=== PATIENT | male | born 1980 | race Two or more races ===

== ENCOUNTER 2024-10-22 17:23 | Inpatient (IN) | payer BC, OTHER ==
[~2024-10-22] VITALS: Ht 170.2 cm; Wt 100.0 kg
[2024-10-22] MEDS: SODIUM CHLORIDE 0.9% 1,000 ML IV SCH (07:45)
--- NOTE | 2024-10-22 17:44 | ED.PDOC ---
History of Present Illness HPI Comments This is a 44-year-old male with past medical history of hypertension, type 2 diabetes mellitus, hyperlipidemia presented to the ED for abnormal lab. Patient stated that he 2 days ago he had a metabolic panel done and today he received message from his PCP regarding worsening of kidney function and urinalysis showed significant hematuria that prompted this visit. The patient also mentioned that recently he was taking ibuprofen more often than before. He denies flank pain, nausea, vomiting, dysuria, hematuria or any changes in bowel habit. Chief Complaint: Abnormal LAB's Time Seen by MD: 17:32 Allergies: Coded Allergies: NO KNOWN ALLERGIES (Unverified , 10/22/24) Information Source: Patient Mode of Arrival: Ambulatory Severity: Mild Timing: Days Duration: Since onset Past Medical History PAST MEDICAL HISTORY: DM, HTN Surgical History: Denies all surgeries Family History Family History: Reviewed,noncontributory to illness Social History Smoker: Non-Smoker Alcohol: Occasionally Drugs: Denies Drug Use Lives In: Home Constitutional: denies: chills, diaphoresis, fatigue, fever, malaise, sweats, weakness, others EENTM: denies: blurred vision, double vision, ear bleeding, ear discharge, ear drainage, ear pain, ear ringing, eye pain, eye redness, hearing loss, mouth pain, mouth swelling, nasal discharge, nose bleeding, nose congestion, nose pain, photophobia, tearing, throat pain, throat swelling, voice changes, others Respiratory: denies: cough, hemoptysis, orthopnea, SOB at rest, shortness of breath, SOB with excertion, stridor, wheezing, others Cardiovascular: denies: chest pain, dizzy spells, diaphoresis, Dyspnea on exertion, edema, irregular heart beat, left arm pain, lightheadedness, palpitations, PND, syncope, others Gastrointestinal: denies: abdomen distended, abdominal pain, blood streaked bowels, constipated, diarrhea, dysphagia, difficulty swallowing, hematemesis, melena, nausea, poor appetite, poor fluid intake, rectal bleeding, rectal pain, vomiting, others Genitourinary: denies: burning, dysuria, flank pain, frequency, hematuria, incontinence, penile discharge, penile sore, pain, testicle pain, testicle swelling, urgency, others Neurological: denies: dizziness, fainting, headache, left sided numbness, left sided weakness, numbness, paresthesia, pre-existing deficit, right sided numbness, right sided weakness, seizure, speech problems, tingling, tremors, weakness, others Musculoskeletal: denies: back pain, gout, joint pain, joint swelling, muscle pain, muscle stiffness, neck pain, others Integumetry: denies: bruises, change in color, change in hair/nails, dryness, laceration, lesions, lumps, rash, wounds, others Allergic/Immunocompromised: denies: Difficulty Healing, Frequent Infections, Hives, Itching, others Hematologic/Lymphatic: denies: anemia, blood clots, easy bleeding, easy bruising, swollen glands, others Endocrine: denies: excessive hunger, excessive sweating, excessive thirst, excessive urination, flushing, intolerance to cold, intolerance to heat, unexplained weight gain, unexplained weight loss, others Psychiatric: denies: anxiety, bipolar disorder, depression, hopeless, panic disorder, schizophrenia, sleepless, suicidal, others Physical Exam General Appearance: Normal HEENT: Normal ENT Inspection, Pharynx Normal, TMs Normal Neck: Full Range of Motion, Non-Tender, Normal, Normal Inspection Respiratory: Chest Non-Tender, Lungs Clear, No Accessory Muscle Use, No Respiratory Distress, Normal Breath Sounds Cardiovascular: No Edema, No JVD, No Murmur, No Gallop, Normal Peripheral Pulses, Regular Rate/Rhythm Breast Exam: Deferred Gastrointestinal: No Organomegaly, Non Tender, No Pulsatile Mass, Normal Bowel Sounds, Soft Genitalia: Deferred Pelvic: Deferred Rectal: Deferred Extremities: No calf tenderness, Normal capillary refill, Normal inspection, Normal range of motion, Non-tender, No pedal edema Neurologic: Alert, 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 Was a procedure done?: No Differential Dx Considerations may include: NICOLE, analgesic nephropathy, UTI, hypertension, type 2 diabetes mellitus X-Ray, Labs, Meds, VS Vital Signs Date Time Temp Pulse Resp B/P (MAP) Pulse Ox O2 Delivery O2 Flow Rate FiO2 10/22/24 17:24 98.1 82 16 149/105 98 98.1 Lab Test 10/22/24 18:12 Range/Units White Blood Count 8.0 4.4-10.8 10^3/uL Red Blood Count 4.76 4.5-5.90 10^6/uL Hemoglobin 13.7 13.5-17.5 g/dL Hematocrit 39.5 L 41.0-53.0 % Mean Corpuscular Volume 83.0 80.0-100.0 fL Mean Corpuscular Hemoglobin 28.7 28.0-32.0 pg Mean Corpuscular Hemoglobin Concent 34.6 32.0-36.0 g/dL Red Cell Distribution Width 13.4 11.8-14.3 % Platelet Count 322 140-450 10^3/uL Mean Platelet Volume 7.5 6.9-10.8 fL Neutrophils (%) (Auto) 59.2 37.0-80.0 % Lymphocytes (%) (Auto) 26.9 10.0-50.0 % Monocytes (%) (Auto) 8.9 0.0-12.0 % Eosinophils (%) (Auto) 4.2 0.0-7.0 % Basophils (%) (Auto) 0.8 0.0-2.0 % Neutrophils # (Auto) 4.7 1.6-8.6 10 ^3/uL Lymphocytes # (Auto) 2.2 0.4-5.4 10 ^3/uL Monocytes # (Auto) 0.7 0-1.3 10 ^3/uL Eosinophils # (Auto) 0.3 0-0.8 10 ^3/uL Basophils # (Auto) 0.1 0-0.2 10 ^3/uL Nucleated Red Blood Cells 0.1 % Sodium Level 136 136-145 mmol/L Potassium Level 4.1 3.5-5.1 mmol/L Chloride Level 101 98-107 mmol/L Carbon Dioxide Level 23 20-31 mmol/L Anion Gap 12 5-15 Blood Urea Nitrogen 27 H 9-23 mg/dL Creatinine 1.90 H 0.700-1.30 mg/dL Glomerular Filtration Rate Calc 44 >90 mL/min BUN/Creatinine Ratio 14.2 10.0-20.0 Serum Glucose 102 74-106 mg/dL Calcium Level 9.4 8.7-10.4 mg/dL Total Bilirubin 1.7 H 0.2-1.0 mg/dL Aspartate Amino Transferase (AST) 30 13-40 U/L Alanine Aminotransferase (ALT) 36 7-40 U/L Alkaline Phosphatase 152 H 46-116 U/L Total Protein 8.8 H 5.7-8.2 g/dL Albumin 5.2 H 3.2-4.8 g/dL X-Ray, Labs, Meds, VS Comment CBC was unremarkable CMP demonstrated elevated BUN, creatinine, bilirubin and ALP Images Reviewed?: Images reviewed and evaluated by me Time of 1ST Reevaluation: 19:11 Reevaluation 1ST: Unchanged Patient Education/Counseling: Diagnosis, Treatment Family Education/Counseling: No Family Present Comments This is a 44-year-old male came to the ER for re-evaluation of abnormal lab results CBC is unremarkable BNP demonstrated elevated BUN, creatinine, bilirubin and ALP The patient needs inpatient admission for IV fluid to treat possible prerenal NICOLE SEPSIS Sepsis Screen Date sepsis recognized/suspect: Oct 22, 2024 Time Sepsis recognized/suspect: 1726 Recent Procedure: No On Antibiotic Therapy: No Respiratory Rate >20: No Heart Rate >90: No Temp<36 C (96.8 F) or >38.3 C: No SBP <90 or MAP <65 mmHG: No New Acute Mental Status Change: No Is the patient on CPAP, BIPAP,: No Physician Orders Urinalysis (10/22/24 17:41) Vital Signs Date Time Temp Pulse Resp B/P (MAP) Pulse Ox O2 Delivery O2 Flow Rate FiO2 10/22/24 17:24 98.1 82 16 149/105 98 98.1 Laboratory Tests Test 10/22/24 18:12 White Blood Count 8.0 10^3/uL (4.4-10.8) Departure 1 Departure Time of Disposition: 19:13 Impression: Primary Impression: NICOLE (acute kidney injury) Additional Impression: Hyperbilirubinemia Disposition: ADMITTED INPATIENT Admit to: Med Surg Condition: Guarded Critical Care Note Critical Care Time?: No Stability Stability form required: No ANA LAURA MOORE RESIDENT Oct 22, 2024 17:44
[2024-10-22 18:22] LABS: Hematocrit 39.5 % (41.0-53.0); Hemoglobin 13.7 g/dL (13.5-17.5); Mean Corpuscular Hemoglobin 28.7 pg (28.0-32.0); Mean Corpuscular Volume 83.0 fL (80.0-100.0); Nucleated Red Blood Cells % 0.1 %
[2024-10-22 18:53] LABS: Alanine Aminotransferase 36 U/L (7-40); Albumin 5.2 g/dL (3.2-4.8); Alkaline Phosphatase 152 U/L (46-116); Anion Gap 12 (5-15); BUN/Creatinine Ratio 14.2 (10.0-20.0); Blood Urea Nitrogen 27 mg/dL (9-23); Calcium 9.4 mg/dL (8.7-10.4); Carbon Dioxide 23 mmol/L (20-31); Chloride 101 mmol/L (98-107); Glucose 102 mg/dL (74-106); Potassium 4.1 mmol/L (3.5-5.1); Sodium 136 mmol/L (136-145); Total Protein 8.8 g/dL (5.7-8.2)
[2024-10-22 18:54] LABS: Bilirubin, Total 1.7 mg/dL (0.2-1.0)
[2024-10-22 19:57] LABS: Urine Protein, UAD Negative (Negative)
[2024-10-22] MEDS: SODIUM CHLORIDE 0.9% 1,000 ML IV ONE (20:38)
[2024-10-22] MEDS ORDERED: DOCUSATE SOD 100 MG CAP PO PRN (23:00)
[2024-10-22] MEDS ORDERED: hydrALAZINE HCL 20 MG/ML VL IV PRN (23:00)
[2024-10-22] MEDS ORDERED: ONDANSETRON HCL 4 MG/2 ML VIAL IV PRN (23:00)
[2024-10-22] MEDS ORDERED: DEXTROSE (50%) 50ML SYRG IV PRN (23:00)
[2024-10-22] MEDS ORDERED: HYDROcodone-ACET 5/325MG TAB PO PRN (23:00)
[2024-10-22] MEDS ORDERED: ACETAMINOPHEN 325 MG TAB PO PRN (23:00)
--- NOTE | 2024-10-22 23:33 | DVHHP2 ---
History of Present Illness Reason for Visit: Acute renal injury History of Present Illness The patient is a 44-year-old male with past medical history diabetes mellitus, hypertension, and hyperlipidemia who presented to [facility] ED for evaluation of abnormal labs. Patient reports he had routine metabolic panel lab draw 2 days ago and receive a call from his PCP regarding worsening kidney function and urinalysis showed significant hematuria. Patient was seen and evaluated in the ED, laboratory data shows WBC 8.0, platelets 322, sodium 136, potassium 4.1, BUN 27, creatinine 1.90, glucose 102, calcium 9.4, protein 8.8, albumin 5.2, total bilirubin 1.7, alkaline phos 152, blood pressure 160/91, heart rate 78, temperature 98.4 F, O2 saturation 99% on on oxygen. Please see medication orders section in the computer. On my assessment, patient denied chest pain, headache, no dizziness, no shortness of breath, no abdominal pain, no nausea, no vomiting, no fever, no chills. Patient was admitted for further evaluation medical management. Past Medical History DM, HTN, HLD Past Surgical History Denies all surgeries Family History Reviewed, noncontributory to the management of this case. Past Social History The patient lives at home, denies smoking, alcohol or illicit drugs abuse. Review of Systems Constitutional: No: Fever, Chills, Sweats, Weakness, Malaise, Other Eyes: No: Pain, Vision change, Conjunctivae inflammation, Eyelid inflammation, Other, Redness ENT: No: Ear pain, Ear discharge, Nose pain, Nose discharge, Nose congestion, Mouth pain, Mouth swelling, Throat pain, Throat swelling, Other Respiratory: No: Cough, Dry, Shortness of breath, SOB with excertion, Wheezing, Hemoptysis, Pleuritic Pain, Sputum, Wheezing, Other Cardiovascular: No: Chest Pain, Palpitations, Orthopnea, Paroxysmal Noc. Dyspnea, Edema, Lt Headedness, Other Gastrointestinal: No: Nausea, Vomiting, Abdominal Pain, Diarrhea, Constipation, Melena, Hematochezia, Other Genitourinary: No Dysuria, No Frequency, No Incontinence; Hematuria; No Retention, No Other Musculoskeletal: No: other, neck pain, shoulder pain, arm pain, back pain, hand pain, leg pain, foot pain Skin: No: Rash, Lesions, Jaundice, Bruising, Other Neurological: No: Weakness, Numbness, Incoordination, Change in speech, Confusion, Seizures, Other Allergies: Coded Allergies: NO KNOWN ALLERGIES (Unverified , 10/22/24) Medications Current Medications Medications Dose Ordered Sig/Peggy Route Start Time Stop Time Status Last Admin Dose Admin Atorvastatin Calcium 10 mg HS PO 10/23/24 22:00 Amlodipine Besylate 5 mg DAILY PO 10/23/24 10:00 Hydralazine HCl 10 mg Q6HP PRN IV 10/22/24 23:00 Diagnostic Test (Pha) 1 strip ACHS 10/23/24 07:00 Insulin Human Regular ACHS SC 10/23/24 07:00 Dextrose 50 ml UD PRN IV 10/22/24 23:00 Sodium Chloride 1,000 ml @ 60 mls/hr [id number] IV 10/22/24 23:00 Acetaminophen/ Hydrocodone Bitart 1 tab Q4HP PRN PO 10/22/24 23:00 Ondansetron HCl 4 mg Q4HP PRN IV 10/22/24 23:00 Docusate Sodium 100 mg BIDPRN PRN PO 10/22/24 23:00 Acetaminophen 650 mg Q6HP PRN PO 10/22/24 23:00 Exam Vital Signs Vital Signs Date Time Temp Pulse Resp B/P (MAP) Pulse Ox O2 Delivery O2 Flow Rate FiO2 10/22/24 22:39 98.4 78 16 160/91 (114) 99 98.4 10/22/24 20:16 Room Air General Appearance: Alert, Oriented X3, Cooperative, No acute distress HEENT: Atraumatic, PERRLA, EOMI, Mucous membr. moist/pink Respiratory: Clear to auscultation, Normal air movement Cardiovascular: Regular rate, Normal S1, Normal S2, No murmurs Abdominal: Normal bowel sounds, Soft, No tenderness, No hepatospenomegaly, No masses Extremities: No clubbing, No cyanosis, No edema, Normal pulses, No tenderness/swelling Skin: No rashes, No breakdown, No significant lesion Neuro: Normal gait, Normal speech, Strength at 5/5 X4 ext, Normal tone, Sensation intact, Cranial nerves 3-12 NL, Reflexes 2+ Psych/Mental Status: Mental status NL, Mood NL Labs/Xrays Labs Test 10/22/24 18:39 10/22/24 18:12 Range/Units Urine Color Colorless Yellow Urine Clarity Clear Clear Urine pH 5.5 5.0-9.0 Urine Specific [place] 1.006 1.001-1.035 Urine Protein Negative Negative Urine Ketones Negative Negative Urine Blood Negative Negative /uL Urine Nitrite Negative Negative Urine Bilirubin Negative Negative Urine Urobilinogen Normal Negative mg/dL Urine Leukocyte Esterase Negative Negative /uL Urine RBC <1 0 - 3 /hpf Urine Microscopic WBC < 1 0-3 /HPF Urine Squamous Epithelial Cells None seen <5 /hpf Urine Bacteria None seen None Seen /hpf Urine Glucose Normal Normal mg/dL White Blood Count 8.0 4.4-10.8 10^3/uL Red Blood Count 4.76 4.5-5.90 10^6/uL Hemoglobin 13.7 13.5-17.5 g/dL Hematocrit 39.5 L 41.0-53.0 % Mean Corpuscular Volume 83.0 80.0-100.0 fL Mean Corpuscular Hemoglobin 28.7 28.0-32.0 pg Mean Corpuscular Hemoglobin Concent 34.6 32.0-36.0 g/dL Red Cell Distribution Width 13.4 11.8-14.3 % Platelet Count 322 140-450 10^3/uL Mean Platelet Volume 7.5 6.9-10.8 fL Neutrophils (%) (Auto) 59.2 37.0-80.0 % Lymphocytes (%) (Auto) 26.9 10.0-50.0 % Monocytes (%) (Auto) 8.9 0.0-12.0 % Eosinophils (%) (Auto) 4.2 0.0-7.0 % Basophils (%) (Auto) 0.8 0.0-2.0 % Neutrophils # (Auto) 4.7 1.6-8.6 10 ^3/uL Lymphocytes # (Auto) 2.2 0.4-5.4 10 ^3/uL Monocytes # (Auto) 0.7 0-1.3 10 ^3/uL Eosinophils # (Auto) 0.3 0-0.8 10 ^3/uL Basophils # (Auto) 0.1 0-0.2 10 ^3/uL Nucleated Red Blood Cells 0.1 % Sodium Level 136 136-145 mmol/L Potassium Level 4.1 3.5-5.1 mmol/L Chloride Level 101 98-107 mmol/L Carbon Dioxide Level 23 20-31 mmol/L Anion Gap 12 5-15 Blood Urea Nitrogen 27 H 9-23 mg/dL Creatinine 1.90 H 0.700-1.30 mg/dL Glomerular Filtration Rate Calc 44 >90 mL/min BUN/Creatinine Ratio 14.2 10.0-20.0 Serum Glucose 102 74-106 mg/dL Calcium Level 9.4 8.7-10.4 mg/dL Total Bilirubin 1.7 H 0.2-1.0 mg/dL Aspartate Amino Transferase (AST) 30 13-40 U/L Alanine Aminotransferase (ALT) 36 7-40 U/L Alkaline Phosphatase 152 H 46-116 U/L Total Protein 8.8 H 5.7-8.2 g/dL Albumin 5.2 H 3.2-4.8 g/dL SEPSIS Sepsis Screen Date sepsis recognized/suspect: Oct 22, 2024 Time Sepsis recognized/suspect: 1725 Recent Procedure: No On Antibiotic Therapy: No Respiratory Rate >20: No Heart Rate >90: No Temp<36 C (96.8 F) or >38.3 C: No SBP <90 or MAP <65 mmHG: No New Acute Mental Status Change: No Is the patient on CPAP, BIPAP,: No Physician Orders Atorvastatin (Lipitor) (10/23/24 22:00) Amlodipine Tablet (Norvasc Tablet) (10/23/24 10:00) Hydralazine Injection (Apresoline Inject (10/22/24 23:00) *[facility] (10/22/24 22:55) Consistent Carb(Ccho)Diabetes (10/23/24 Breakfast) Glucose Blood (Accu-Chek Comfort Curve T (10/23/24 07:00) Insulin R (Human) (Insulin R) (10/23/24 07:00) Dextrose 50% Syringe (10/22/24 23:00) Allergies (10/22/24 22:55) Code Status (10/22/24 22:55) Sodium Chloride 0.9% (10/22/24 23:00) Oxygen Per Hour (10/22/24 22:55) Hydrocodone-Acet 5/325mg Tab ([place] 5/32 (10/22/24 23:00) Ondansetron Hcl (Zofran) (10/22/24 23:00) Docusate Sodium Capsule (Colace Capsule) (10/22/24 23:00) Complete Blood Count (10/23/24 04:00) Comprehensive Metabolic Panel (10/23/24 04:00) Condition: Serious (10/22/24 22:55) Acetaminophen Tablet (Tylenol Tablet) (10/22/24 23:00) Bedrest With Bathroom Privileg (10/22/24 22:55) Sequential Compression Device (10/22/24 ) Vital Signs Date Time Temp Pulse Resp B/P (MAP) Pulse Ox O2 Delivery O2 Flow Rate FiO2 10/22/24 22:39 98.4 78 16 160/91 (114) 99 98.4 10/22/24 20:16 97.9 72 16 147/90 (109) 99 97.9 10/22/24 20:16 72 17 99 Room Air 10/22/24 17:24 98.1 82 16 149/105 98 98.1 Laboratory Tests Test 10/22/24 18:12 White Blood Count 8.0 10^3/uL (4.4-10.8) Medications Medications Dose Ordered Sig/Peggy Route Start Time Stop Time Status Last Admin Dose Admin Sodium Chloride 1,000 ml @ 1,000 mls/hr Q1H ONCE IV 10/22/24 19:30 10/22/24 20:29 DC 10/22/24 20:38 1,000 MLS/HR Assessment/Plan Assessment/Plan Acute renal injury Hypertension Hyperbilirubinemia Plan 1. Admit to med surge unit 2. Breathing treatment 3. Pain control management 4. Management of fluids and electrolytes 5. Consultation for Nephrology 6. Diagnostic tests chest x-ray 7. DVT prophylaxis on SCDs 8. Repeat labs CBC, CMP in a.m. 9. Continue with current medical management 10. Treatment plan discussed with patient and RN. Patient verbalized understanding. Plan discussed with: Patient, Other (RN) My Orders Orders - ZA TURNER DNP Procedure Category Date Status Time Atorvastatin (Lipitor) PHA 10/23/24 In Process 22:00 Amlodipine Tablet PHA 10/23/24 In Process (Norvasc Tablet) 10:00 Hydralazine Injection PHA 10/22/24 In Process (Apresoline Inject 23:00 *[facility] CONS 10/22/24 Transmitted -[place] 22:55 Consistent DIET 10/23/24 Transmitted Carb(Ccho)Diabetes Breakfast Glucose Blood PHA 10/23/24 In Process (Accu-Chek Comfort 07:00 Insulin R (Human) PHA 10/23/24 In Process (Insulin R) 07:00 Dextrose 50% Syringe PHA 10/22/24 In Process 23:00 Allergies MAZIN 10/22/24 In Process 22:55 Code Status CODE 10/22/24 Transmitted 22:55 Sodium Chloride 0.9% PHA 10/22/24 In Process 23:00 Oxygen Per Hour RT 10/22/24 Transmitted 22:55 Hydrocodone-Acet PHA 10/22/24 In Process 5/325mg Tab ([place] 23:00 Ondansetron Hcl PHA 10/22/24 In Process (Zofran) 23:00 Docusate Sodium PHA 10/22/24 In Process Capsule (Colace 23:00 Complete Blood Count LAB 10/23/24 Verified 04:00 Comprehensive LAB 10/23/24 Verified Metabolic Panel 04:00 Condition: Serious MAZIN 10/22/24 In Process 22:55 Acetaminophen Tablet PHA 10/22/24 In Process (Tylenol Tablet) 23:00 Bedrest With Bathroom MAZIN 10/22/24 In Process Privileg 22:55 Sequential MAZIN 10/22/24 In Process Compression Device Problem List: (1) Acute renal injury (2) Hypertension (3) Hyperbilirubinemia Date of Service: Oct 22, 2024 Billing Provider: ZA TURNER DNP Common Visit Codes: 33737-[id number] INP/OBS CARE (HIGH) ZA TURNER DNP Oct 22, 2024 23:33
[2024-10-22] MEDS ORDERED: NITROGLYCERIN 0.4 MG SL TAB SL PRN (23:45)
[2024-10-22] MEDS ORDERED: MORPHINE SULFATE INJ 2 MG/ml SYRG IV PRN (23:45)
[2024-10-23 02:00] VITALS: BP 149/93; PULSE 69; RESP 16; TEMP 98.1; O2SAT 96
[2024-10-23 04:04] VITALS: BP 129/78; PULSE 71; RESP 13; TEMP 97.6; O2SAT 97
[2024-10-23 04:50] LABS: Hematocrit 39.4 % (41.0-53.0); Hemoglobin 13.6 g/dL (13.5-17.5); Mean Corpuscular Hemoglobin 28.5 pg (28.0-32.0); Mean Corpuscular Volume 82.6 fL (80.0-100.0); Nucleated Red Blood Cells % 0.1 %
[2024-10-23 05:03] LABS: Alanine Aminotransferase 33 U/L (7-40); Anion Gap 10 (5-15); BUN/Creatinine Ratio 16.2 (10.0-20.0); Calcium 9.1 mg/dL (8.7-10.4); Carbon Dioxide 24 mmol/L (20-31); Chloride 104 mmol/L (98-107); Potassium 4.4 mmol/L (3.5-5.1); Sodium 138 mmol/L (136-145)
[2024-10-23 05:10] LABS: Albumin 4.9 g/dL (3.2-4.8); Alkaline Phosphatase 151 U/L (46-116); Bilirubin, Total 1.7 mg/dL (0.2-1.0); Blood Urea Nitrogen 25 mg/dL (9-23); Glucose 132 mg/dL (74-106); Total Protein 8.4 g/dL (5.7-8.2)
[2024-10-23 06:00] VITALS: BP 120/77; PULSE 79; RESP 14; TEMP 97.8; O2SAT 98
[2024-10-23] MEDS: ACCU-CHEK COMFORT CURVE STRIP VI SCH (06:40)
[2024-10-23] MEDS: InsuLIN REG 1unit/0.01ml Soln (100units/ml) SC SCH (06:41)
[2024-10-23 07:57] VITALS: PULSE 74; RESP 11; O2SAT 94
[2024-10-23 11:30] VITALS: BP 140/92; PULSE 79; RESP 18; TEMP 97.8; O2SAT 98
[2024-10-23] MEDS ORDERED: LOSA-535 PO (13:11)
[2024-10-23] MEDS ORDERED: METF-370 PO (13:11)
[2024-10-23] MEDS ORDERED: ATOR10TA52 PO (13:11)
[2024-10-23] MEDS ORDERED: AML5T GT (13:11)
--- NOTE | 2024-10-23 13:47 | DVH ---
INDICATION: kareen TECHNIQUE: Multiple real-time sonographic images of the kidneys and bladder were obtained. COMPARISON: None FINDINGS: The right kidney measures 10 cm in length, which is normal in size. There is normal echogen icity of the right kidney. No hydronephrosis. The left kidney measures 11 cm in length, which is normal in size. There is normal echogenicity of th e left kidney. No hydronephrosis. 7 mm left renal stone No large intraluminal masses are seen in the bladder. Prior to voiding the bladder volume measures vo lume 330 cc. IMPRESSION: 7 mm left renal stone No hydronephrosis.
--- NOTE | 2024-10-23 14:50 | DVH ---
INDICATION: eval RUQ, elevated ALP TECHNIQUE: Multiple real-time sonographic images were obtained of the right upper quadrant. COMPARISON: US KIDNEY on DOS: 10/23/24 FINDINGS: The liver demonstrates increased echotexture without focal mass lesions. The liver measures 15 cm. There is no intrahepatic or extrahepatic ductal dilatation. The common duct measures 6 mm. The gallbladder is without evidence of stone or sludge. The gallbladder wall measures 2 mm and is wi thin normal limits. The right kidney measures 10.5 cm. The right kidney is normal in contour, size, and shape. The echo genicity is normal. There is no hydronephrosis. The pancreas is not well visualized due to overlying bowel gas. IMPRESSION: No sonographic evidence of gallstones or acute cholecystitis. Hepatic steatosis.
[2024-10-23 15:48] LABS: Protein, Urine < 6.0 mg/dL (1-14)
--- NOTE | 2024-10-23 18:15 | DVHDSRES ---
Discharge Summary Date of Admission Resident Creating Document: JCARLOS HALL RESIDENT Oct 22, 2024 at 23:32 Date of Discharge: Oct 23, 2024 Admitting Diagnosis acute renal injury Labs/Diagnostic Data: Laboratory Results Test 10/23/24 11:44 10/23/24 04:11 10/22/24 18:39 POC Glucose 112 mg/dl (70-106) White Blood Count 7.9 10^3/uL (4.4-10.8) Red Blood Count 4.77 10^6/uL (4.5-5.90) Hemoglobin 13.6 g/dL (13.5-17.5) Hematocrit 39.4 % (41.0-53.0) Mean Corpuscular Volume 82.6 fL (80.0-100.0) Mean Corpuscular Hemoglobin 28.5 pg (28.0-32.0) Mean Corpuscular Hemoglobin Concent 34.5 g/dL (32.0-36.0) Red Cell Distribution Width 13.2 % (11.8-14.3) Platelet Count 317 10^3/uL (140-450) Mean Platelet Volume 7.7 fL (6.9-10.8) Neutrophils (%) (Auto) 74.7 % (37.0-80.0) Lymphocytes (%) (Auto) 15.7 % (10.0-50.0) Monocytes (%) (Auto) 6.1 % (0.0-12.0) Eosinophils (%) (Auto) 2.9 % (0.0-7.0) Basophils (%) (Auto) 0.6 % (0.0-2.0) Neutrophils # (Auto) 5.9 10 ^3/uL (1.6-8.6) Lymphocytes # (Auto) 1.2 10 ^3/uL (0.4-5.4) Monocytes # (Auto) 0.5 10 ^3/uL (0-1.3) Eosinophils # (Auto) 0.2 10 ^3/uL (0-0.8) Basophils # (Auto) 0 10 ^3/uL (0-0.2) Nucleated Red Blood Cells 0.1 % Sodium Level 138 mmol/L (136-145) Potassium Level 4.4 mmol/L (3.5-5.1) Chloride Level 104 mmol/L (98-107) Carbon Dioxide Level 24 mmol/L (20-31) Anion Gap 10 (5-15) Blood Urea Nitrogen 25 mg/dL (9-23) Creatinine 1.54 mg/dL (0.700-1.30) Glomerular Filtration Rate Calc 57 mL/min (>90) BUN/Creatinine Ratio 16.2 (10.0-20.0) Serum Glucose 132 mg/dL (74-106) Calcium Level 9.1 mg/dL (8.7-10.4) Total Bilirubin 1.7 mg/dL (0.2-1.0) Aspartate Amino Transferase (AST) 29 U/L (13-40) Alanine Aminotransferase (ALT) 33 U/L (7-40) Alkaline Phosphatase 151 U/L (46-116) Total Protein 8.4 g/dL (5.7-8.2) Albumin 4.9 g/dL (3.2-4.8) Urine Color Colorless (Yellow) Urine Clarity Clear (Clear) Urine pH 5.5 (5.0-9.0) Urine Specific [place] 1.006 (1.001-1.035) Urine Protein Negative (Negative) Urine Ketones Negative (Negative) Urine Blood Negative /uL (Negative) Urine Nitrite Negative (Negative) Urine Bilirubin Negative (Negative) Urine Urobilinogen Normal mg/dL (Negative) Urine Leukocyte Esterase Negative /uL (Negative) Urine RBC <1 /hpf (0 - 3) Urine Microscopic WBC < 1 /HPF (0-3) Urine Squamous Epithelial Cells None seen /hpf (<5) Urine Bacteria None seen /hpf (None Seen) Urine Creatinine 53.70 mg/dL (30.0-125.0) Urine Protein/Creatinine Ratio 0.11 Urine Glucose Normal mg/dL (Normal) Urine Total Protein < 6.0 mg/dL (1-14) Other Laboratory Tests 10/23/24 04:11 Brief Hx & Hospital Course: The patient is a 44-year-old male with diabetes mellitus, hypertension, and hyperlipidemia who presented to [facility] ED for evaluation of abnormal labs. Patient reported he had routine metabolic panel lab draw 2 days ago and receive a call from his PCP regarding worsening kidney function and urinalysis. Patient was seen and evaluated in the ED, laboratory data showed WBC 8.0, platelets 322, sodium 136, potassium 4.1, BUN 27, creatinine 1.90, glucose 102, calcium 9.4, protein 8.8, albumin 5.2, total bilirubin 1.7, alkaline phos 152, blood pressure 160/91, heart rate 78, temperature 98.4 F, O2 saturation 99% on on oxygen. On my assessment, patient denied chest pain, headache, no dizziness, no shortness of breath, no abdominal pain, no nausea, no vomiting, no fever, no chills. Patient was admitted for further evaluation medical management. He has on regular medication for hypertension and diabetes for the last 2 years but missed his lisinopril 4 weeks back for about 2 weeks due to travel. Patient was given IV fluids to manage his KAREEN. Nephrology was consulted, liver ultrasound was ordered to evaluate for his raised ALP but patient left AMA before further evaluation and management could be completed. Past Medical History: DM, HTN, HLD Past Surgical History:denies Family History:father at age 45 due to unknown condition Social History:lives at home with family denies smoking, alcohol or illicit drugs abuse. General Appearance: Cooperative. Well developed. Well nourished. NAD Head Exam: Normal inspection Neck Exam: Normal inspection. Non-tender. Normal alignment Pulmonary/Respiratory: Chest non-tender. Clear bilateral breath sounds, no crackles, no wheezing. Cardiovascular/Chest: Regular rate and rhythm. No murmurs. No JVD. Peripheral Pulses: 2+ Radial (R). 2+ Radial (L). 2+ Pedal (R). 2+ Pedal (L) Abdominal Exam: Normal bowel sounds. Soft. normal abdomen, no visible veins, Nontender. No hepatospenomegaly. No masses Ankle Exam: Negative ankle edema Lower extremities: Negative lower extremity edema Neuro/Mental Status: A&O x4. Coherent. Thoughts/Psych: Normal thought pattern. Appropriate mood and affect. Good judgement and insight Skin Exam: Normal inspection. Normal color. Warm. Dry Goals of care: Full code, discussed for >16 minutes on 10/23/24 Plan discussed with patient Plan discussed with Dr Carpenter Operations or Procedures 1.INDICATION: kareen TECHNIQUE: Multiple real-time sonographic images of the kidneys and bladder were obtained. COMPARISON: None FINDINGS: The right kidney measures 10 cm in length, which is normal in size. There is normal echogenicity of the right kidney. No hydronephrosis. The left kidney measures 11 cm in length, which is normal in size. There is normal echogenicity of the left kidney. No hydronephrosis. 7 mm left renal stone No large intraluminal masses are seen in the bladder. Prior to voiding the bladder volume measures volume 330 cc. IMPRESSION: 7 mm left renal stone No hydronephrosis. 2.INDICATION: eval RUQ, elevated ALP TECHNIQUE: Multiple real-time sonographic images were obtained of the right upper quadrant. COMPARISON: US KIDNEY on DOS: 10/23/24 FINDINGS: The liver demonstrates increased echotexture without focal mass lesions. The liver measures 15 cm. There is no intrahepatic or extrahepatic ductal dilatation. The common duct measures 6 mm. The gallbladder is without evidence of stone or sludge. The gallbladder wall measures 2 mm and is within normal limits. The right kidney measures 10.5 cm. The right kidney is normal in contour, size, and shape. The echogenicity is normal. There is no hydronephrosis. The pancreas is not well visualized due to overlying bowel gas. IMPRESSION: No sonographic evidence of gallstones or acute cholecystitis. Hepatic steatosis. Condition at Discharge: Undetermined Final Diagnosis/Problems List Acute kidney injury, hemodynamcially mediated (VMN) Hypertension Hyperbilirubinemia Type 2 diabetes mellitus Discharge Disposition: AMA Discharge Instruct/Medications Diet: Consistent carbohydrate, Cardiac 2g Na,low cholest Scheduled Atorvastatin Calcium (Atorvastatin Calcium), 1 TAB PO DAILY, (Reported) Losartan Potassium (Losartan Potassium), 1 TAB PO DAILY, (Reported) Metformin Hydrochloride (Metformin Hcl), 500 MG PO DAILY, (Reported) Miscellaneous Medications Amlodipine Besylate (Norvasc Tablet), 5 MG GT, (Reported) Discharge Statement: "Patient was advised to return to the ER or call 911 if any headaches, dizziness, shortness of breath, chest pain, abdominal pain, bleeding, fevers, or worsening of medical condition. Patient was counseled about treatment plan, medications, possible side effects, patientverbalized understanding. All questions were answered to the best of my ability. This discharge took greater then 30 minutes in planning, reviewing documentation, counseling the patient, and discussing with other team members." ASSESSMENT ASSESSMENT Assessment JCARLOS HALL RESIDENT Oct 23, 2024 18:15 JULIETA BARRAGAN RESIDENT Oct 23, 2024 18:58
--- NOTE | 2024-10-23 18:17 | DVHINCON2 ---
Date of service: Oct 23, 2024 Reason for Consultation Acute kidney injury History of Present Illness 44 years old male with past medical history of diabetes for diagnosed two years ago, hypertension diagnosed two years ago, obesity denies any surgeries presented with chief complaints of abnormal labs after getting call from PCP otherwise he denies any symptoms currently getting IV fluids Past Medical History As per HPI Past Surgical History As per HPI Allergies: Coded Allergies: NO KNOWN ALLERGIES (Unverified , 10/22/24) Home Meds Reported Medications Atorvastatin Calcium (ATORVASTATIN CALCIUM) 10 Mg Tab, 1 TAB PO DAILY, #30 TAB 5 Refills 10/23/24 Losartan Potassium (Losartan Potassium) 100 Mg Tab, 1 TAB PO DAILY, #30 TAB 5 Refills 10/23/24 Metformin Hydrochloride (Metformin Hcl) 500 Mg Tab, 500 MG PO DAILY for 30 Days, MG 10/23/24 Amlodipine Besylate (NORVASC TABLET) 5 Mg Tb, 5 MG GT, TAB 10/23/24 Current Medications Current Medications Medications (Trade) Dose Ordered Sig/Peggy Route PRN Reason Start Time Stop Time Status Last Admin Atorvastatin Calcium (Lipitor) 10 mg HS PO 10/23/24 22:00 Amlodipine Besylate (Norvasc Tablet) 5 mg DAILY PO 10/23/24 10:00 10/23/24 10:38 Hydralazine HCl (Apresoline Injection) 10 mg Q6HP PRN IV SBP>150 10/22/24 23:00 Diagnostic Test (Pha) (Accu-Chek Comfort Curve T) 1 strip ACHS 10/23/24 07:00 10/23/24 11:46 Insulin Human Regular (InsuLIN R) ACHS SC 10/23/24 07:00 Dextrose 50 ml UD PRN IV Blood Sugar LESS THAN 60 10/22/24 23:00 Sodium Chloride 1,000 ml @ 60 mls/hr [id number] IV 10/22/24 23:00 10/22/24 07:45 Acetaminophen/ Hydrocodone Bitart ([place] 5/325MG Tab) 1 tab Q4HP PRN PO MODERATE PAIN (4-6 PAIN SCALE) 10/22/24 23:00 Ondansetron HCl (Zofran) 4 mg Q4HP PRN IV NAUSEA / VOMITING 10/22/24 23:00 Docusate Sodium (Colace Capsule) 100 mg BIDPRN PRN PO FOR CONSTIPATION 10/22/24 23:00 Acetaminophen (Tylenol Tablet) 650 mg Q6HP PRN PO PAIN SCALE 1-3 OR TEMP>100.4 10/22/24 23:00 Nitroglycerin (Ntrostat Sublingual) 0.4 mg Q5MINP PRN SL FOR CHEST PAIN 10/22/24 23:45 Morphine Sulfate 2 mg Q30M PRN IV FOR CHEST PAIN 10/22/24 23:45 Social History Denies any Review of Systems HEENT-denies headache, denies vision changes, no hearing issue, denies neck complaints, denies throat issues Respiratory system-denies cough, denies shortness of breath Cardiovascular system-denies chest pain, denies palpitations Abdomen-denies abdominal pain, denies nausea, denies vomiting, denies constipation or diarrhea Musculoskeletal-denies swelling in the legs, denies pain in the extremities Genitourinary-denies urinary symptoms like dysuria, stream issues Neuro-denies dizziness, denies seizures Psychiatric-denies psychiatric history H&P Exam Vital Signs/I&O Vital Sign Date Time Temp Pulse Resp B/P (MAP) Pulse Ox O2 Delivery O2 Flow Rate FiO2 10/23/24 11:30 97.8 79 18 140/92 (108) 98 97.8 10/23/24 07:57 Room Air* 0 21 Physical Exam General-not in any distress HEENT-normocephalic, no icterus, no pallor, neck supple Respiratory-fair air entry bilateral, no rhonchi, no wheeze [id number] heard, no murmurs appreciated Abdominal-soft, nontender, nondistended Musculoskeletal-no pedal edema, no calf tenderness Genitourinary-deferred Neuro-awake alert oriented x3, Psychiatric-not agitated, cooperative, Labs/Diagnostic Data Labs/Diagnostic Data Laboratory Tests Test 10/23/24 11:44 10/23/24 06:38 10/23/24 04:11 10/22/24 18:39 Range/Units POC Glucose 112 H 115 H 70-106 mg/dl White Blood Count 7.9 4.4-10.8 10^3/uL Red Blood Count 4.77 4.5-5.90 10^6/uL Hemoglobin 13.6 13.5-17.5 g/dL Hematocrit 39.4 L 41.0-53.0 % Mean Corpuscular Volume 82.6 80.0-100.0 fL Mean Corpuscular Hemoglobin 28.5 28.0-32.0 pg Mean Corpuscular Hemoglobin Concent 34.5 32.0-36.0 g/dL Red Cell Distribution Width 13.2 11.8-14.3 % Platelet Count 317 140-450 10^3/uL Mean Platelet Volume 7.7 6.9-10.8 fL Neutrophils (%) (Auto) 74.7 37.0-80.0 % Lymphocytes (%) (Auto) 15.7 10.0-50.0 % Monocytes (%) (Auto) 6.1 0.0-12.0 % Eosinophils (%) (Auto) 2.9 0.0-7.0 % Basophils (%) (Auto) 0.6 0.0-2.0 % Neutrophils # (Auto) 5.9 1.6-8.6 10 ^3/uL Lymphocytes # (Auto) 1.2 0.4-5.4 10 ^3/uL Monocytes # (Auto) 0.5 0-1.3 10 ^3/uL Eosinophils # (Auto) 0.2 0-0.8 10 ^3/uL Basophils # (Auto) 0 0-0.2 10 ^3/uL Nucleated Red Blood Cells 0.1 % Sodium Level 138 136-145 mmol/L Potassium Level 4.4 3.5-5.1 mmol/L Chloride Level 104 98-107 mmol/L Carbon Dioxide Level 24 20-31 mmol/L Anion Gap 10 5-15 Blood Urea Nitrogen 25 H 9-23 mg/dL Creatinine 1.54 H 0.700-1.30 mg/dL Glomerular Filtration Rate Calc 57 >90 mL/min BUN/Creatinine Ratio 16.2 10.0-20.0 Serum Glucose 132 H 74-106 mg/dL Calcium Level 9.1 8.7-10.4 mg/dL Total Bilirubin 1.7 H 0.2-1.0 mg/dL Aspartate Amino Transferase (AST) 29 13-40 U/L Alanine Aminotransferase (ALT) 33 7-40 U/L Alkaline Phosphatase 151 H 46-116 U/L Total Protein 8.4 H 5.7-8.2 g/dL Albumin 4.9 H 3.2-4.8 g/dL Urine Color Colorless Yellow Urine Clarity Clear Clear Urine pH 5.5 5.0-9.0 Urine Specific [place] 1.006 1.001-1.035 Urine Protein Negative Negative Urine Ketones Negative Negative Urine Blood Negative Negative /uL Urine Nitrite Negative Negative Urine Bilirubin Negative Negative Urine Urobilinogen Normal Negative mg/dL Urine Leukocyte Esterase Negative Negative /uL Urine RBC <1 0 - 3 /hpf Urine Microscopic WBC < 1 0-3 /HPF Urine Squamous Epithelial Cells None seen <5 /hpf Urine Bacteria None seen None Seen /hpf Urine Creatinine 53.70 30.0-125.0 mg/dL Urine Protein/Creatinine Ratio 0.11 Urine Glucose Normal Normal mg/dL Urine Total Protein < 6.0 1-14 mg/dL Test 10/22/24 18:12 Range/Units White Blood Count 8.0 4.4-10.8 10^3/uL Red Blood Count 4.76 4.5-5.90 10^6/uL Hemoglobin 13.7 13.5-17.5 g/dL Hematocrit 39.5 L 41.0-53.0 % Mean Corpuscular Volume 83.0 80.0-100.0 fL Mean Corpuscular Hemoglobin 28.7 28.0-32.0 pg Mean Corpuscular Hemoglobin Concent 34.6 32.0-36.0 g/dL Red Cell Distribution Width 13.4 11.8-14.3 % Platelet Count 322 140-450 10^3/uL Mean Platelet Volume 7.5 6.9-10.8 fL Neutrophils (%) (Auto) 59.2 37.0-80.0 % Lymphocytes (%) (Auto) 26.9 10.0-50.0 % Monocytes (%) (Auto) 8.9 0.0-12.0 % Eosinophils (%) (Auto) 4.2 0.0-7.0 % Basophils (%) (Auto) 0.8 0.0-2.0 % Neutrophils # (Auto) 4.7 1.6-8.6 10 ^3/uL Lymphocytes # (Auto) 2.2 0.4-5.4 10 ^3/uL Monocytes # (Auto) 0.7 0-1.3 10 ^3/uL Eosinophils # (Auto) 0.3 0-0.8 10 ^3/uL Basophils # (Auto) 0.1 0-0.2 10 ^3/uL Nucleated Red Blood Cells 0.1 % Sodium Level 136 136-145 mmol/L Potassium Level 4.1 3.5-5.1 mmol/L Chloride Level 101 98-107 mmol/L Carbon Dioxide Level 23 20-31 mmol/L Anion Gap 12 5-15 Blood Urea Nitrogen 27 H 9-23 mg/dL Creatinine 1.90 H 0.700-1.30 mg/dL Glomerular Filtration Rate Calc 44 >90 mL/min BUN/Creatinine Ratio 14.2 10.0-20.0 Serum Glucose 102 74-106 mg/dL Calcium Level 9.4 8.7-10.4 mg/dL Total Bilirubin 1.7 H 0.2-1.0 mg/dL Aspartate Amino Transferase (AST) 30 13-40 U/L Alanine Aminotransferase (ALT) 36 7-40 U/L Alkaline Phosphatase 152 H 46-116 U/L Total Protein 8.8 H 5.7-8.2 g/dL Albumin 5.2 H 3.2-4.8 g/dL Assessment Acute kidney injury likely hemodynamic mediated etiology in the setting of outpatient ARB Diabetes Hypertension Recommendations Urine analysis looks okay no hematuria no significant proteinuria Kidney ultrasound ordered Okay to DC IV fluids Stable for discharge from Nephrology standpoint with outpatient follow-up Discussed with RN bedside Patient given our office information to follow as outpatient Continue ARB on discharge Reviewed vital signs, lab work, imaging studies, medications, microbiology, other physician recommendations Total time spent 80 minutes More than 50% of the time spent providing direct [id number] care . Thank you for allowing me to participate in the care of your patient. Plan discussed with: Patient CHETNA NOVAK MD Oct 23, 2024 18:17
[2024-10-23] MEDS ORDERED: ATORVASTATIN 20 MG TAB PO SCH (22:00)
== END 2024-10-23 16:42 | disposition left against medical advice (07) | DRG 684 ==
LOC: EDSEX 17:23 → ER 17:23 → OVERFLOW 23:32
PROVIDERS: ADMIT Nurse Practitioner Family; ATTEND Nurse Practitioner Family
DX: N17.0 Acute kidney failure with tubular necrosis (principal); I10 Essential (primary) hypertension; E11.9 Type 2 diabetes mellitus without complications; E78.5 Hyperlipidemia, unspecified; E80.6 Other disorders of bilirubin metabolism; Z53.29 Procedure and treatment not carried out because of patient's decision for other reasons
CPT/HCPCS: 36415; 76705; 76775; 80053; 81001; 82570; 82962; 84156; 85025; G0378